=== PATIENT | female | born 1965 | race Caucasian/White ===

== ENCOUNTER → 2019-01-13 | Outpatient (CLI) | payer OTHER ==
[~2019-01-13] MED LIST: CEPH500 PO; CONEST.9; CYCL10 PO; FLUO10 PO; FLUO20 PO; GABA400 PO; GABAPENTIN PO; HORIZANT300 MG PO; HYDACE5 PO; LORA.5 PO; NAPR500; NAPR500 PO; Norco 5-325 Ta1 EACH PO; OMEP40CA12 PO; OXYACE5T PO; OXYACE7.5T PO; OXYB5ER PO; PROM25 PO; RANI150 PO; SULTRIDS PO; TRAM50 PO; TRAZ50 PO
== END ==
LOC: LAB 14:23 → LAB SHORT 14:23
DX: L98.9 Disorder of the skin and subcutaneous tissue, unspecified (principal)
CPT/HCPCS: 88305

== ENCOUNTER 2021-10-07 10:59 | Inpatient (IN) | payer OTHER ==
[~2021-10-07] VITALS: Ht 162.6 cm; Wt 60.6 kg
[2021-10-07 12:04] LABS: Influenza A, PCR NEGATIVE (NEGATIVE); Influenza B, PCR NEGATIVE (NEGATIVE); Resp Syncytial Virus, PCR NEGATIVE (NEGATIVE); SARS-Cov-2 (COVID-19) PCR, MMC NEGATIVE (NEGATIVE)
[2021-10-07 13:08] LABS: BASOPHILS ABSOLUTE AUTO 0.06 K/mm3 (0.00-0.23); BASOPHILS PERCENT AUTO 0 % (0-2); EOSINOPHILS PERCENT AUTO 0 % (0-6); Hematocrit 49.8 % (33.0-51.0); Hemoglobin 16.7 g/dL (11.5-16.0); IMMATURE GRAN ABSOLUTE AUTO 0.21 K/mm3 (0.00-0.10); IMMATURE GRAN PERCENT AUTO 1 % (0-1); LYMPHOCYTES ABSOLUTE AUTO 1.95 K/mm3 (0.84-5.20); LYMPHOCYTES PERCENT AUTO 6 % (21-46); MONOCYTES ABSOLUTE AUTO 1.41 K/mm3 (0.16-1.47); MONOCYTES PERCENT AUTO 4 % (4-13); Mean Corpuscular HGB 27.2 pg (26.0-34.0); Mean Corpuscular HGB Conc 33.5 g/dL (31.5-36.5); Mean Corpuscular Volume 81 fL (80-100); NEUTROPHILS ABSOLUTE AUTO 28.34 K/mm3 (1.96-9.15); NEUTROPHILS PERCENT AUTO 89 % (41-73); Platelet Count 306 K/mm3 (150-400); RDW Standard Deviation 40.5 fL (35.1-46.3); Red Blood Cell Count 6.15 M/mm3 (3.80-5.20); White Blood Cell Count 31.97 K/mm3 (4.00-11.30)
[2021-10-07 13:41] LABS: Albumin, Blood 3.5 g/dL (3.4-5.0); Albumin/Globulin Ratio 0.9 (0.8-1.8); Bilirubin, Total 0.8 mg/dL (0.1-1.0); Bun/Creatinine Ratio 26.7 (12.0-20.0); Calcium, Blood 9.8 mg/dL (8.5-10.1); Creatinine, Blood 1.05 mg/dL (0.40-1.00); Potassium, Blood 3.8 mmol/L (3.5-5.5); Total Protein, Blood 7.5 g/dL (6.4-8.2)
[2021-10-07 15:33] LABS: Base Excess Venous -13.1 mmol/L; Bicarbonate Venous 14.8 mmol/L (24.0-30.0); PCO2 Venous 33.8 mmHg (38-42); PO2 Venous 47.5 mmHg (38-42); pH Blood Venous 7.24 (7.34-7.37)
[2021-10-07 16:16] LABS: Anti-Xa UFH, PHA Monitoring <0.10 IU/mL; International Normalized Ratio 1.02; Prothrombin Time Results 10.7 Sec (9.7-11.5)
[2021-10-07] MEDS ORDERED: MELOXICAM10 MG PO (18:05)
[2021-10-07] MEDS ORDERED: OMEP20ER PO (18:06)
--- NOTE | 2021-10-07 18:23 | NUR ---
ADMIT PT ARRIVED TO ICU 6 AT 1725. PT ALERT, DENIES CHEST PAIN, ON BIPAP / 60% FIO2. FIRST BP UPON ADMIT READ WITH SBP IN THE 50S, CHECKED OTHER ARM AND SBP 60S. ATTEMPTED MANUAL, BUT UNABLE TO HEAR. AMIODARONE STOPPED, DR. GREENWOOD NOTIFIED AND ORDERS RECEIVED FOR LEVOPHED. ALSO SPOKE WITH DR. GREENWOOD AND DR. EAGLE ABOUT SWITCHING ECHO TO STAT SO IT WILL BE DONE TONIGHT. LEVOPHED STARTED AT 4MCG/MIN WITH GOOD RESPONSE. DR. EAGLE THEN CAME TO THE BEDSIDE AND ORDERED FOR THE AMIODARONE TO STAY OFF AND TO SWITCH LEVOPHED TO INEZ-SYNEPHRINE. DURING THIS PT'S SPO2 STARTED TO DROP TO THE MID 80S. FIO2 INCREASED TO 70, THEN 80%. RT NOTIFIED AND RT KERI CAME TO ADJUST BIPAP SETTINGS. PT NOW 95% WITH FIO2 80% 24/09. SINUS TACH WITH RATE 1TEENS. CURRENTLY, WAITING FOR ECHO, TECH HAS BEEN NOTIFIED BY NURSING DAY TRADER. DR. EAGLE CONSULTED DR. FREITAS. PT'S IS AT THE BEDSIDE AND HAS BEEN UPDATED BY NURSING STAFF.
[2021-10-07 21:19] LABS: Source, Urine Clean Catch
[2021-10-07 21:35] LABS: Appearance, Urine Hazy (Clear); Bilirubin, Urine Neg (Neg); Blood, Urine 1+ (Neg); Color, Urine Yellow (P-Yellow); Glucose Qualitative, Urine Neg (Neg); Ketones, Urine 2+ (Neg); Leukocyte Esterase, Urine Neg (Neg); Nitrite, Urine Neg (Neg); Protein, Urine 2+ (Neg); Specific Gravity, Urine 1.015 (1.003-1.022); Urobilinogen, Urine NORM (Normal)
[2021-10-07 21:47] LABS: Amorphous Light (0-Heavy); Bacteria Rare /hpf; Squamous Epithelial Cells Not Seen /hpf (Few); White Blood Cells, Urine 0-2 /hpf (0-5)
[2021-10-07 21:48] LABS: U Amphetamine Screen Not Detected; U Barbituate Screen Not Detected; U Benzodiazapine Screen Not Detected; U Buprenorphine Screen Not Detected; U Cannabinoids Screen DETECTED; U Cocaine Screen DETECTED; U Methadone Screen Not Detected; U Methamphetamine Screen DETECTED; U Opiates Screen Not Detected; U Oxycodone Screen Not Detected; U Phencyclidine Screen Not Detected; U Propoxyphene Screen Not Detected
[2021-10-08 05:00] LABS: BASOPHILS ABSOLUTE AUTO 0.12 K/mm3 (0.00-0.23); BASOPHILS PERCENT AUTO 0 % (0-2); EOSINOPHILS PERCENT AUTO 0 % (0-6); Hemoglobin 16.2 g/dL (11.5-16.0); IMMATURE GRAN ABSOLUTE AUTO 0.44 K/mm3 (0.00-0.10); IMMATURE GRAN PERCENT AUTO 1 % (0-1); LYMPHOCYTES ABSOLUTE AUTO 2.13 K/mm3 (0.84-5.20); LYMPHOCYTES PERCENT AUTO 5 % (21-46); MONOCYTES ABSOLUTE AUTO 2.25 K/mm3 (0.16-1.47); MONOCYTES PERCENT AUTO 6 % (4-13); Mean Corpuscular HGB Conc 33.1 g/dL (31.5-36.5); Mean Corpuscular Volume 82 fL (80-100); NEUTROPHILS ABSOLUTE AUTO 35.85 K/mm3 (1.96-9.15); NEUTROPHILS PERCENT AUTO 88 % (41-73); Platelet Count 186 K/mm3 (150-400); RDW Coefficient Variation 14.3 % (11.7-14.2); RDW Standard Deviation 41.9 fL (35.1-46.3); Red Blood Cell Count 5.99 M/mm3 (3.80-5.20); White Blood Cell Count 40.79 K/mm3 (4.00-11.30)
[2021-10-08 05:06] LABS: Mean Platelet Volume 13.3 fL (9.1-12.4)
[2021-10-08 05:12] LABS: Albumin/Globulin Ratio 0.8 (0.8-1.8); Bilirubin, Total 0.5 mg/dL (0.1-1.0); Bun/Creatinine Ratio 21.6 (12.0-20.0); Calcium, Blood 9.3 mg/dL (8.5-10.1); Creatinine, Blood 1.76 mg/dL (0.40-1.00); Globulin, Blood 3.6 g/dL (2.2-4.0); Magnesium, Blood 2.1 mg/dL (1.6-2.4); Potassium, Blood 3.8 mmol/L (3.5-5.5); Total Protein, Blood 6.6 g/dL (6.4-8.2)
--- NOTE | 2021-10-08 05:59 | NUR ---
NEURO: A&OX4. PAIN MANAGEMENT EFFECTIVE ON PRN CV: PRESSOR TITRATED OFF AT SHIFT START. AFEBRILE LUNGS: CLEAR TO DIMINISHED. WEAK NON-PRODUCTIVE COUGH. UNABLE TO TOLERATE BIPAP (N/V). MD NOTIFIED SWITCH TO HIFLOW GI/: POST PLACED FOR URINARY RETENTION. DIURESIS SKIN: TURNS SELF - INDEPENDENT WITH CARE VTE: HEPARIN GTT
[2021-10-08] MEDS ORDERED: ABILIFY MYCITE10 M2 PO (08:00)
[2021-10-08] MEDS ORDERED: TIZA4 PO (10:48)
--- NOTE | 2021-10-08 12:43 | NUR ---
REASSESSMENT PT HAS BEEN RESTING IN BED THROUGHOUT THE MORNING. SHE STATES SHE IS FEELING BETTER THAN YESTERDAY AND CONTINUING TO FEEL BETTER THROUGHOUT THE MORNING. DR. EAGLE, TIMO, AND JADEN HAVE ALL ROUNDED ON HER AND UPDATED HER AND HER ON PLAN OF CARE. GABAPENTIN ADDED TO PT'S ALLERGY LIST AND DC'D FROM MEDICATION LIST PT STATES IT GAVE HER SUICIDAL THOUGHTS IN THE PAST. DISCUSSED HOME MED LIST WITH DR. GREENWOOD AFTER PT'S BROUGHT THE MEDS IN AND LIST WAS UPDATED. ORDERED PT'S HOME TINAZIDINE AND ABILIFY PER DR. GREENWOOD. LASIX AND FLAGYL ORDERED PER DR. STANLEY AND PT HAS HAD GOOD URINE RETURN. EKG COMPLETED PER DR. EAGLE'S ORDERS AND SHOWN TO HIM. HI FLOW NC TITRATED DOWN THROUGHOUT THE MORNING, CURRENTLY AT 45L AND 45% FIO2 WITH SPO2 91%. STILL WITH CRACKLES IN THE BASES. REMAINS OFF OF PRESSORS, MAP CURRENTLY 68. PT HAS HAD ONGOING NAUSEA THROUGHOUT THE MORNING. SHE HAS BEEN ABLE TO KEEP SIPS OF WATER DOWN AND ATTEMPTED TO EAT A CRACKER BUT IT MADE HER NAUSEA WORSE. PT'S ANÍBAL AT THE BEDSIDE AND WAS UPDATED BY THIS NURSE.
--- NOTE | 2021-10-08 14:12 | NUR ---
NAUSEA PT STILL HAVING NAUSEA, MEDICATED WITH REGLAN PER APR. PT'S IS CONCERNED SHE IS GETTING HYPOGLYCEMIC SINCE SHE HASN'T EATEN AND SHE HAS A HISTORY OF HYPOGLYCEMIA. BLOOD SUGAR CHECKED AND IT WAS 113. PT STATED THAT THE ONLY THING THAT SOUNDS GOOD IS YOGURT AND SHE WOULD LIKE TO TRY AND EAT SOME. YOGURT GIVEN TO HER AND PT TAKING SOME SMALL BITES. TOELRATING SO FAR.
--- NOTE | 2021-10-08 17:27 | NUR ---
SHIFT SUMMARY PT HAS BEEN RESTING IN BED THROUGHOUT THE DAY. HI FLOW WAS TITRATED DOWN TO 40L AND 40% FIO2 OVER THIS SHIFT AND SPO2 CURRENTLY 94%. HR REMAINS ST WITH RATE IN THE 120S, BP STABLE. ONGOING NAUSEA THROUGHOUT THE DAY. PT TRIED SEVERAL TIMES TO EAT A LITTLE BIT OF FOOD, BUT DIDN'T TOLERATE. POST WITH GOOD OUTPUT TODAY, CLEAR YELLOW, SEE I/O. PT'S SPENT MOST OF THE DAY AT THE BEDSIDE. CONTINUING TO MONITOR.
[2021-10-09 05:20] LABS: BASOPHILS ABSOLUTE AUTO 0.05 K/mm3 (0.00-0.23); BASOPHILS PERCENT AUTO 0 % (0-2); EOSINOPHILS PERCENT AUTO 0 % (0-6); Hematocrit 45.7 % (33.0-51.0); IMMATURE GRAN ABSOLUTE AUTO 0.12 K/mm3 (0.00-0.10); IMMATURE GRAN PERCENT AUTO 1 % (0-1); LYMPHOCYTES ABSOLUTE AUTO 1.81 K/mm3 (0.84-5.20); LYMPHOCYTES PERCENT AUTO 7 % (21-46); MONOCYTES ABSOLUTE AUTO 1.08 K/mm3 (0.16-1.47); MONOCYTES PERCENT AUTO 4 % (4-13); Mean Corpuscular HGB 27.1 pg (26.0-34.0); Mean Corpuscular HGB Conc 32.8 g/dL (31.5-36.5); Mean Corpuscular Volume 83 fL (80-100); NEUTROPHILS ABSOLUTE AUTO 22.98 K/mm3 (1.96-9.15); NEUTROPHILS PERCENT AUTO 88 % (41-73); Platelet Count 183 K/mm3 (150-400); RDW Coefficient Variation 14.2 % (11.7-14.2); RDW Standard Deviation 42.3 fL (35.1-46.3); Red Blood Cell Count 5.53 M/mm3 (3.80-5.20); White Blood Cell Count 26.04 K/mm3 (4.00-11.30)
[2021-10-09 05:40] LABS: Magnesium, Blood 2.3 mg/dL (1.6-2.4)
[2021-10-09 05:41] LABS: Albumin, Blood 2.8 g/dL (3.4-5.0); Anion Gap 11 mmol/L (6-16); Blood Urea Nitrogen 46 mg/dL (8-24); Bun/Creatinine Ratio 33.3 (12.0-20.0); CO2, Blood 24 mmol/L (21-32); Calcium, Blood 8.7 mg/dL (8.5-10.1); Chloride, Blood 111 mmol/L (98-108); Creatinine, Blood 1.38 mg/dL (0.40-1.00); Glomerular Filtration Rate 45 (60-); Glucose, Blood 102 mg/dL (70-99); Potassium, Blood 3.2 mmol/L (3.5-5.5); Sodium, Blood 146 mmol/L (136-145)
[2021-10-09 05:49] LABS: Mean Platelet Volume 13.5 fL (9.1-12.4)
--- NOTE | 2021-10-09 06:30 | NUR ---
SPOUSE AT BEDSIDE AT SHIFT START. COOPERATIVE/THANKFUL FOR CARE. N/V AT SHIFT START MD NOTIFIED PRN ORDERED (SEE ORDERS). NEURO: A&OX4. PRN PAIN MANAGEMENT EFFECTIVE. CV: ST NORMOTENSIVE AFEBRILE. DENIES CHEST PAIN LUNGS: HIFLO TITRATED DOWN BY RT TOLERATED WELL. DENIES SOB OR DISCOMFORT GI: N/V MANAGED ON PRN - EFFECTIVE : POST FOR STRICT UO/URINARY RETENTION SKIN: TURNS SELF INDEPENDENT WITH CARE. BONY PROMINENCES OFFLOADED AND PROTECTED VTE: HEPARIN GTT
--- NOTE | 2021-10-09 09:45 | NUR ---
PT TO GATHERING MACHINE FEEDER
--- NOTE | 2021-10-09 10:42 | NUR ---
RETURN TO ICU: pt returned to ICU from cath lab radiological technologist. TR band in place on right wrist; no blood visualized. Distal CMS intact. Pt denies any chest pain or shortness of breath.
[2021-10-09 11:27] LABS: Bun/Creatinine Ratio 33.3 (12.0-20.0); Calcium, Blood 8.6 mg/dL (8.5-10.1); Creatinine, Blood 1.2 mg/dL (0.40-1.00); International Normalized Ratio 1.04; Magnesium, Blood 2.2 mg/dL (1.6-2.4); Prothrombin Time Results 10.9 Sec (9.7-11.5)
--- NOTE | 2021-10-09 13:20 | NUR ---
PROVIDER PHONE CALL: Upon report from labor relations consultant, RN was informed that heparin was to be stopped. Clarified heparin drip with Dr. Lantigua. Provider does want heparin continued in case of cardioversion tomorrow AM. Heparin restarted and pharmacy notified.
--- NOTE | 2021-10-09 13:41 | NUR ---
TR BAND: TR band deflated with no recurrence of bleeding. Distal CMS intact and reassessed frequently
--- NOTE | 2021-10-09 14:09 | NUR ---
PROVIDER UPDATE: Dr Lantigua at bedside. Verbal order to DC heparin.
--- NOTE | 2021-10-09 16:53 | NUR ---
SHIFT/TRANSFER SUMMARY: pt transferred to PCU 05 from ICU. She had cath performed today by Dr Lantigua and heparin was discontinued. NEURO: A/O X4; VELA. [facility]. generalized weakness reported from pt. RESPIRATORY: exertional dyspnea noted. Pt titrated off airvo to 4L NC. Dim at bases. She was instructed on IS use and encouraged practice taking 5 deep breaths each hour using the IS. CARDIAC: sinus tach on monitor. SBP in 80's upon initial return from geoscience laboratory technician. BP have stabilized since; SBP currently 119. MAP above 65 all day. TR band and right IJ removed without complication. GI/: medina removed without complication. Pt now voiding spontaneously on toilet. Loose BM today. Continued complaints of nausea which have been treated with reglan and zofran with good effect. She is tolerating PO intake well. SKIN: no bleeding noted to TR band and IJ site dressings. No skin breakdown visualized PSYCH/SOCIAL: significant other at bedside and supportive throughout the day.
--- NOTE | 2021-10-09 17:25 | NUR ---
TRANSFER UPDATE RECEIVED REPORT FROM ICU NURSE ABOUT PT. PT ARRIVED IN PCU 5 VIA WHEEL CHAIR. BP STABLE IN THE 120'S, HR IS ELAVATED IN THE 120'S WELL. PT MAINTAINING SPO2 >94 ON 4L VIA NC WITH NO SIGNS OF SOB OR DYSPNEA NOTED. PT IS A/Ox4 ANSWERS QUESTIONS APPROPRIATELY. RIGHT RADIAL ACCESS SITE IS FREE OF REDNESS, SWELLING, OR HEMATOMA NOTED. PULSES PRESENT ABOVE AND BELOW THE SITE WITH NO DECREASE IN SENSATION REPORTED. MS DOES NOT REPORT ANY CP OR PRESSURE AT THIS TIME. I HAVE REVIEWED PT'S SHIFT ASSESSMENT BEFORE HER TRANSFER AND FOUND THE ASSESSMENTS STILL PERTINENT TO PT'S CURRENT STATUS. STEPHEN LOZANO
[2021-10-10 04:46] LABS: BASOPHILS ABSOLUTE AUTO 0.04 K/mm3 (0.00-0.23); BASOPHILS PERCENT AUTO 0 % (0-2); EOSINOPHILS ABSOLUTE AUTO 0.02 K/mm3 (0.00-0.68); EOSINOPHILS PERCENT AUTO 0 % (0-6); Hematocrit 44.7 % (33.0-51.0); Hemoglobin 14.6 g/dL (11.5-16.0); IMMATURE GRAN ABSOLUTE AUTO 0.07 K/mm3 (0.00-0.10); IMMATURE GRAN PERCENT AUTO 0 % (0-1); LYMPHOCYTES ABSOLUTE AUTO 1.78 K/mm3 (0.84-5.20); LYMPHOCYTES PERCENT AUTO 10 % (21-46); MONOCYTES ABSOLUTE AUTO 1.01 K/mm3 (0.16-1.47); MONOCYTES PERCENT AUTO 6 % (4-13); Mean Corpuscular HGB 27.3 pg (26.0-34.0); Mean Corpuscular HGB Conc 32.7 g/dL (31.5-36.5); Mean Corpuscular Volume 84 fL (80-100); NEUTROPHILS ABSOLUTE AUTO 15.16 K/mm3 (1.96-9.15); NEUTROPHILS PERCENT AUTO 84 % (41-73); Platelet Count 180 K/mm3 (150-400); RDW Coefficient Variation 14.6 % (11.7-14.2); RDW Standard Deviation 43.8 fL (35.1-46.3); Red Blood Cell Count 5.35 M/mm3 (3.80-5.20); White Blood Cell Count 18.08 K/mm3 (4.00-11.30)
[2021-10-10 04:50] LABS: C DIFFICILE DNA Negative (Negative)
[2021-10-10 04:54] LABS: Anion Gap 3 mmol/L (6-16); Blood Urea Nitrogen 32 mg/dL (8-24); Bun/Creatinine Ratio 31.1 (12.0-20.0); CO2, Blood 29 mmol/L (21-32); Calcium, Blood 8.9 mg/dL (8.5-10.1); Chloride, Blood 112 mmol/L (98-108); Creatinine, Blood 1.03 mg/dL (0.40-1.00); Glomerular Filtration Rate 65 (60-); Glucose, Blood 116 mg/dL (70-99); Magnesium, Blood 2.4 mg/dL (1.6-2.4); Mean Platelet Volume 12.9 fL (9.1-12.4); Phosphorus, Blood 1.7 mg/dL (2.5-4.9); Potassium, Blood 4.1 mmol/L (3.5-5.5); Sodium, Blood 144 mmol/L (136-145)
--- NOTE | 2021-10-10 06:03 | NUR ---
SHIFT SUMMARY NO ACUTE CHANGES THIS SHIFT. PT ALERT, USES CALL LIGHT APPROPRIATELY. IN ROOM FOR FIRST PART OF SHIFT. SP02 4-5L NC. VSS. EKG DONE THIS AM PER ORDERS. R RADIAL SITE RECOVERED, NO BRUISING NO BLEEDING, NO HEMATOMA. ARM BOARD IN PLACE. UP TO BSC SBA MULTIPLE TIMES TO HAVE DIARRHEA. CALL PLACED TO MD HOUGH TO TEST FOR CDIFF: RESULTED NEGATIVE. DENIED PAIN. C/O OF NAUSEA, MEDICATED PER EMAR X1. DID NOT SLEEP DURING NIGHT, PT STATED SHE THINKS SHE HAS HER DAYS/NIGHTS MIXED UP. CALL LIGHT IN REACH.
--- NOTE | 2021-10-10 07:28 | NUR ---
PT HAD COMPLAINTS OF MORE DIARRHEA THIS MORNING AND ASKED IF THEIR WAS A MEDICATION WE COULD GIVE TO HELP PREVENT MORE DIARRHEA. SPOKE WITH DR. GREENWOOD ABOUT THE MATTER, STOOL SAMPLE TESTED NEGAITVE FORE C.DIFF AND DR. GREENWOOD ORDERED IMODIUM FOR THE PT. WILL CONTINUE TO MONITOR PTS' GI STATUS
--- NOTE | 2021-10-10 16:32 | NUR ---
SHIFT SUMMARY PT IS A/Ox4 AND SHE ANSWERS QUESTIONS APPROPRIATELY. RIGHT RADIAL ACCESS SITE IS FREE OF HEMATOMA, REDNESS, OR SWELLING. RADIAL PULSE FELT BELOW AND ABOVE THE SITE WITH HAND BEING WARM TO THE TOUCH. PT'S BP HAS BEEN STABLE RANGING FROM THE 110'S-120'S. HR IS STILL ELAVATED RANGING FROM THE 100'S-120'S. PT DOES NOT REPORT ANY SOB/DYSPNEA OR ANY NEW EPISODES OF DIARRHEA DURING MY SHIFT. PT WAS WEANED OFF O2 AND MAINTAINED SPO2 >94 ON RA. PT HAS RESPONDED WELL TO THE ANTI-NAUSEA MEDICATIONS ADMINISTERED PER EMAR. FMTREMAYNE HAS BEEN PRESENT WITH PATIENT T/O MY SHIFT AND HAS BEEN HELPING WITH PT'S CARE. STEPHEN LOZANO T/O MY SHIFT
--- NOTE | 2021-10-10 17:09 | NUR ---
UPDATE PT HAD AN EPISODE OF SINUS SHAGGY WHERE SHE SUDDENLY DROPPED DOWN TO THE 40'S WHEN HER RATE HAS CONSTISTENTLY BEEN IN THE 110'S-120'S. PT'S BP ALSO DROPPED TO THE 60'S BEFORE RECOVERING TO THE 100'S. THE EPISODE LASTED ABOUT 20-30 AND THE PT REPORTED DIZZYNESS AND "I FELT LIKE I WAS GOING TO PASS OUT". PT DOES NOT REPORT ANY CP OR CHEST PRESSURE DURING THE EVENT. PT WAS IN A RECLINER WHEN THE EVENT HAPPENED, LEGS WERE QUICKLY RAISED AND VSS ASSESSED. CHARGE NURSE NOTIFIED OF INCIDENT, EKG PERFORMED WITH NO ACUTE CHANGES FROM THE ONE PERFORMED THIS AM. DR. EAGLE WAS NOTIFIED OF THE INCIDENT AND EKG FINDINGS. STATED TO CONTINUE MONITORING THE PT WITH NO NEW ORDERS AT THIS TIME
--- NOTE | 2021-10-10 17:37 | NUR ---
Notified Dr Olson of event, and clarified mention of fluid restriuction in note, new orders entered.
[2021-10-11 00:45] LABS: Hematocrit 38.8 % (33.0-51.0); Mean Corpuscular HGB 27.8 pg (26.0-34.0); Mean Corpuscular HGB Conc 33.5 g/dL (31.5-36.5); Mean Corpuscular Volume 83 fL (80-100); Mean Platelet Volume 12.8 fL (9.1-12.4); Platelet Count 151 K/mm3 (150-400); RDW Coefficient Variation 14.5 % (11.7-14.2); RDW Standard Deviation 43.8 fL (35.1-46.3); Red Blood Cell Count 4.67 M/mm3 (3.80-5.20)
[2021-10-11 00:47] LABS: BASOPHILS ABSOLUTE AUTO 0.03 K/mm3 (0.00-0.23); BASOPHILS PERCENT AUTO 0 % (0-2); EOSINOPHILS ABSOLUTE AUTO 0.11 K/mm3 (0.00-0.68); EOSINOPHILS PERCENT AUTO 1 % (0-6); IMMATURE GRAN ABSOLUTE AUTO 0.08 K/mm3 (0.00-0.10); IMMATURE GRAN PERCENT AUTO 1 % (0-1); LYMPHOCYTES PERCENT AUTO 14 % (21-46); MONOCYTES ABSOLUTE AUTO 1.09 K/mm3 (0.16-1.47); MONOCYTES PERCENT AUTO 7 % (4-13); NEUTROPHILS ABSOLUTE AUTO 12.45 K/mm3 (1.96-9.15); NEUTROPHILS PERCENT AUTO 78 % (41-73); White Blood Cell Count 15.96 K/mm3 (4.00-11.30)
[2021-10-11 00:59] LABS: Albumin, Blood 2.7 g/dL (3.4-5.0); Anion Gap 4 mmol/L (6-16); Blood Urea Nitrogen 25 mg/dL (8-24); Bun/Creatinine Ratio 30.8 (12.0-20.0); CO2, Blood 29 mmol/L (21-32); Calcium, Blood 8.5 mg/dL (8.5-10.1); Chloride, Blood 111 mmol/L (98-108); Creatinine, Blood 0.81 mg/dL (0.40-1.00); Glomerular Filtration Rate 86 (60-); Glucose, Blood 113 mg/dL (70-99); Phosphorus, Blood 2.2 mg/dL (2.5-4.9); Potassium, Blood 3.5 mmol/L (3.5-5.5); Sodium, Blood 144 mmol/L (136-145)
--- NOTE | 2021-10-11 17:29 | NUR ---
SUMMARY PT RESTING IN BED. ENCOURAGING MORE MOVEMENT TODAY. PT CAN MOVE SELF IN BED INDEPENDENTLY. ABLE TO TITRATE O2 DOWN TO 1L. R RADIAL ACCESS SITE STABLE. PT STATES SHE IS STILL HAVING SOME NAUSEA BUT IS ABLE TO KEEP SOME FOOD AND MEDS DOWN. NO ACUTE CHANGES THIS SHIFT.
[2021-10-12 04:05] LABS: BASOPHILS ABSOLUTE AUTO 0.04 K/mm3 (0.00-0.23); BASOPHILS PERCENT AUTO 0 % (0-2); EOSINOPHILS ABSOLUTE AUTO 0.24 K/mm3 (0.00-0.68); EOSINOPHILS PERCENT AUTO 2 % (0-6); Hematocrit 36.9 % (33.0-51.0); IMMATURE GRAN ABSOLUTE AUTO 0.08 K/mm3 (0.00-0.10); IMMATURE GRAN PERCENT AUTO 1 % (0-1); LYMPHOCYTES ABSOLUTE AUTO 2.32 K/mm3 (0.84-5.20); LYMPHOCYTES PERCENT AUTO 16 % (21-46); MONOCYTES ABSOLUTE AUTO 1.09 K/mm3 (0.16-1.47); MONOCYTES PERCENT AUTO 7 % (4-13); Mean Corpuscular HGB 27.3 pg (26.0-34.0); Mean Corpuscular HGB Conc 32.5 g/dL (31.5-36.5); Mean Corpuscular Volume 84 fL (80-100); NEUTROPHILS PERCENT AUTO 74 % (41-73); Platelet Count 150 K/mm3 (150-400); RDW Coefficient Variation 14.4 % (11.7-14.2); RDW Standard Deviation 43.5 fL (35.1-46.3); White Blood Cell Count 14.67 K/mm3 (4.00-11.30)
[2021-10-12 04:06] LABS: Mean Platelet Volume 13.6 fL (9.1-12.4)
[2021-10-12 04:29] LABS: Albumin, Blood 2.5 g/dL (3.4-5.0); Anion Gap 6 mmol/L (6-16); Blood Urea Nitrogen 19 mg/dL (8-24); Bun/Creatinine Ratio 25.6 (12.0-20.0); CO2, Blood 28 mmol/L (21-32); Calcium, Blood 8.1 mg/dL (8.5-10.1); Chloride, Blood 109 mmol/L (98-108); Creatinine, Blood 0.74 mg/dL (0.40-1.00); Glomerular Filtration Rate 96 (60-); Glucose, Blood 99 mg/dL (70-99); Phosphorus, Blood 2.8 mg/dL (2.5-4.9); Potassium, Blood 3.7 mmol/L (3.5-5.5); Sodium, Blood 143 mmol/L (136-145)
--- NOTE | 2021-10-12 06:10 | NUR ---
SHIFT SUMMARY NO ACUTE CHANGES THIS SHIFT. PT ALERT, USES CALL LIGHT APPROPRIATELY. 1-3L NC. VSS. UP TO BSC TO VOID AND HAVE SOFT/LOOSE BM. IMMODIUM GIVEN PER EMAR X1. DENIES PAIN. ADHERED TO FLUID RESTRICTION DURING THIS SHIFT. ABX GIVEN PER EMAR. CALL LIGHT IN REACH. PT SLEPT OFF AND ON T/O NIGHT. PT VOICED QUESTIONS ABOUT GOING HOME AND HOW EAGER SHE IS TO GET HOME.
--- NOTE | 2021-10-12 08:56 | NUR ---
[place] of Care: Care assumed at 0700hr. Patient alert and oriented x4. Denies pain, discomfort, SOB, or dyspnea. VSS, spO2- 94-96% on 1L/NC. Tolerated transfer to [facility] and then chair without difficulty. Plan to remove NC after breakfast. Peripheral IV to lt forearm patent and intact. Void and soft bowel movement this morning in commode without difficulty. C/o mild nausea this morning, prn zofran given with good effect. Tolerating breakfast tray but eating small bites with frequent breaks. Call light in reach, makes needs known. Will continue to monitor.
[2021-10-12] MEDS ORDERED: CARV6.25 PO (12:57)
[2021-10-12] MEDS ORDERED: ELIQUIS5 M2 PO (12:57)
[2021-10-12] MEDS ORDERED: Lisinopril2.5 MG PO (12:58)
[2021-10-12] MEDS ORDERED: LOPE2C PO (12:59)
[2021-10-12] MEDS ORDERED: VISBIOME 112.51 EACH PO (13:01)
[2021-10-12] MEDS ORDERED: AMOCLA875 PO (13:01)
--- NOTE | 2021-10-12 14:12 | NUR ---
Discharge: Approval to discharge received from Dr. Lantigua this morning, instructed to continue all current medications. Dr. Olson informed and discharge orders received. Instructions and medications reviewed with patient and her . New medications prescriptions sent to [facility] pharmacy. All questions answered to patient and husbands satisfaction. Peripheral IV removed without difficulty. Patient assisted via w/c to personal vehicle with .
== END 2021-10-12 13:59 | disposition home or self-care (01) | DRG 871 ==
LOC: ER 10:59 → ICUW 16:18 → ICUE 16:18 → ER 17:22 → ICUE 17:35 → PCU 10-09 17:33
PROVIDERS: Emergency Medicine; Internal Medicine Cardiovascular Disease; Internal Medicine Critical Care Medicine; Pharmacist; Physician Assistant; Student in an Organized Health Care Education/Training Program; ADMIT Internal Medicine
PROC: 3E03329 Introduction of Other Anti-infective into Peripheral Vein, Percutaneous Approach (ICD-10-PCS; principal; 2021-10-07)
PROC: 02HV33Z Insertion of Infusion Device into Superior Vena Cava, Percutaneous Approach (ICD-10-PCS; 2021-10-07)
PROC: 3E033XZ Introduction of Vasopressor into Peripheral Vein, Percutaneous Approach (ICD-10-PCS; 2021-10-07)
PROC: 4A023N7 Measurement of Cardiac Sampling and Pressure, Left Heart, Percutaneous Approach (ICD-10-PCS; 2021-10-09)
PROC: B2151ZZ Fluoroscopy of Left Heart using Low Osmolar Contrast (ICD-10-PCS; 2021-10-09)
PROC: B2111ZZ Fluoroscopy of Multiple Coronary Arteries using Low Osmolar Contrast (ICD-10-PCS; 2021-10-09)
DX: A41.9 Sepsis, unspecified organism (principal); I21.4 Non-ST elevation (NSTEMI) myocardial infarction; J96.01 Acute respiratory failure with hypoxia; J18.9 Pneumonia, unspecified organism; I50.21 Acute systolic (congestive) heart failure; R57.0 Cardiogenic shock; R65.21 Severe sepsis with septic shock; I48.92 Unspecified atrial flutter; N17.9 Acute kidney failure, unspecified; E87.2 Acidosis; I42.9 Cardiomyopathy, unspecified; Z20.822 Contact with and (suspected) exposure to COVID-19; E87.6 Hypokalemia; I48.0 Paroxysmal atrial fibrillation; M19.90 Unspecified osteoarthritis, unspecified site; G47.00 Insomnia, unspecified; M54.50 Low back pain, unspecified; G89.29 Other chronic pain; F17.210 Nicotine dependence, cigarettes, uncomplicated; Z90.89 Acquired absence of other organs; Z98.51 Tubal ligation status; Z90.710 Acquired absence of both cervix and uterus; Z90.49 Acquired absence of other specified parts of digestive tract; Z88.1 Allergy status to other antibiotic agents; Z91.040 Latex allergy status; Z79.899 Other long term (current) drug therapy
CPT/HCPCS: 0241U; 36415; 36556; 71045; 71275; 76937; 80048; 80053; 80069; 81001; 82803; 82947; 83605; 83690; 83735; 83880; 84145; 84484; 85025; 85379; 85520; 85610; 85730; 87040; 87493; 93005; 93010; 93306; 93458; 94660; 94762; 96365; 96366; 96367; 96368; 96375; 99152; 99291-25; A9270; C1751; C1769; C1887; C1894; C9113; G0480; J0282; J0696; J1644; J1940; J2250; J2370; J2405; J2543; J2550; J2765; J3010; J3370; J3480; J7030; J7040; J7050; J7060; Q9967

== ENCOUNTER 2022-12-31 07:01 | Day surgery (SDC) | payer OTHER ==
[2022-12-31] VITALS (15 sets, daily range): BP systolic 109–154; BP diastolic 51–85
[~2022-12-31] VITALS: Ht 162.6 cm; Wt 71.8 kg
[~2022-12-31 07:01] MED LIST changes: +ABILIFY MYCITE10 M2 PO; +AMOCLA875 PO; +CARV6.25 PO; +ELIQUIS5 M2 PO; +LOPE2C PO; +LOSA25 PO; +Lisinopril2.5 MG PO; +MELOXICAM10 MG PO; +OMEP20ER PO; +Pepcid20 MG PO; +TIZA4 PO; +VISBIOME 112.51 EACH PO
--- NOTE | 2022-12-31 07:15 | NUR ---
PT TO DAY SURGERY FOR COLONOSCOPY; PT HAS WITH HER AND WILL BE HER RIDE. PLAN OF CARE DISCUSSED AND QUESTIONS ANSWERED.
--- NOTE | 2022-12-31 08:09 | NUR ---
12/31/22 0809 Cameron Peck HISTORY, CHART, MEDICATIONS AND ALLERGIES REVIEWED BEFORE START OF PROCEDURE. PATIENT CONFIRMS NPO STATUS AND AGREES WITH SCHEDULED PROCEDURE. 3-LEAD EKG REVIEWED WITH PHYSICIAN PRIOR TO START OF PROCEDURE. MONITOR INTACT WITH CONTINUOUS PULSE OXIMETRY,CAPNOGRAPHY, 3-LEAD EKG, INTERMITTENT BP. SUPPLEMENTAL O2 TO BE TITRATED THROUGHOUT PROCEDURE TO MAINTAIN O2 SATURATION ABOVE 90%. PATIENT DETERMINED TO BE ASA APPROPRIATE FOR PROPOFOL SEDATION PRIOR TO START OF PROCEDURE BY DR. VARGAS.
--- NOTE | 2022-12-31 09:06 | NUR ---
Patient up to Ambulate independently. Gait steady. Discharge instructions reviewed with patient. Patient verbalizes understanding. Copy given to patient to take home. Discharged via wheelchair to private car for ride home WITH SPOUSE. CLARIFIED DISCHARGE INSTRUCTIONS WITH dR. Bradley.
== END 2022-12-31 23:04 | disposition home or self-care (01) ==
LOC: ORSCMMR 07:01 → ORD 08:00 → ORSCMMR 23:04
PROVIDERS: Internal Medicine Gastroenterology
PROC: 0DBK8ZX Excision of Ascending Colon, Via Natural or Artificial Opening Endoscopic, Diagnostic (ICD-10-PCS; principal; 2022-12-31 08:00)
DX: R10.9 Unspecified abdominal pain (principal); R19.4 Change in bowel habit; Z86.010 Personal history of colon polyps; D12.2 Benign neoplasm of ascending colon; I51.81 Takotsubo syndrome; I48.92 Unspecified atrial flutter; Z79.01 Long term (current) use of anticoagulants; Z79.899 Other long term (current) drug therapy
CPT/HCPCS: 88305; J2704; J7120

== ENCOUNTER → 2023-06-06 | Outpatient (CLI) | payer OTHER | END | disposition home or self-care (01) | LOC: LAB 14:30 → LAB SHORT 14:30 | DX: L72.0 Epidermal cyst (principal) | CPT/HCPCS: 88304 ==